=== PATIENT | female | born 1980 | race Caucasian/White ===

== ENCOUNTER 2019-05-17 14:47 | Emergency (ER) | payer BC ==
[~2019-05-17] VITALS: Ht 152.4 cm; Wt 44.9 kg
--- NOTE | 2019-05-17 15:00 | NUR ---
Patient seen by Dr. Rodriguez.
--- NOTE | 2019-05-17 15:23 | NUR ---
X-Ray of right hand performed.
[2019-05-17 15:56] VITALS: BP 134/65
== END 2019-05-17 15:50 | disposition home or self-care (01) ==
LOC: ER 14:53
DX: S67.31XA Crushing injury of right wrist, initial encounter (principal); S64.21XA Injury of radial nerve at wrist and hand level of right arm, initial encounter; S64.01XA Injury of ulnar nerve at wrist and hand level of right arm, initial encounter; F41.9 Anxiety disorder, unspecified; F32.9 Major depressive disorder, single episode, unspecified; Z91.030 Bee allergy status; Y09 Assault by unspecified means
CPT/HCPCS: 73110; 73130; A4663